=== PATIENT | female | born 1975 | race African-American/Black ===

== ENCOUNTER 2017-05-07 16:36 | Emergency (ER) | payer OTHER ==
[~2017-05-07] VITALS: Ht 162.6 cm; Wt 100.8 kg
[2017-05-07] MEDS ORDERED: LIDOCAINE HCL 1% 20ML VIAL (Pyxis) INJ INFIL ONE (21:00)
[2017-05-08 00:05] VITALS: BP 162/93
== END 2017-05-08 00:25 | disposition home or self-care (01) ==
LOC: ER 16:54
DX: T16.1XXA Foreign body in right ear, initial encounter (principal); I10 Essential (primary) hypertension; Z88.8 Allergy status to other drugs, medicaments and biological substances; X58.XXXA Exposure to other specified factors, initial encounter; Y93.89 Activity, other specified; Y92.89 Other specified places as the place of occurrence of the external cause; Y99.8 Other external cause status
CPT/HCPCS: 69200; 99284; J3490; X7700; Z7610